=== PATIENT | female | born 1970 | race Caucasian/White ===

== ENCOUNTER → 2016-05-26 | Outpatient (CLI) | payer MEDICARE, OTHER | LOC: VM.MRI 14:06 | PROVIDERS: ATTEND Neurological Surgery | DX: M43.12 Spondylolisthesis, cervical region (principal); M50.323 Other cervical disc degeneration at C6-C7 level; Z98.1 Arthrodesis status | CPT/HCPCS: 72141 ==

== ENCOUNTER → 2016-05-26 | Outpatient (CLI) | payer MEDICARE, OTHER | LOC: VM.MRI 13:51 | PROVIDERS: ATTEND Pain Medicine Interventional Pain Medicine | DX: M47.817 Spondylosis without myelopathy or radiculopathy, lumbosacral region (principal); M51.37 Other intervertebral disc degeneration, lumbosacral region; M46.96 Unspecified inflammatory spondylopathy, lumbar region; M46.97 Unspecified inflammatory spondylopathy, lumbosacral region | CPT/HCPCS: 72148 ==

== ENCOUNTER 2016-10-04 13:03 | Emergency (ER) | payer MEDICARE, OTHER ==
[2016-10-04] MEDS ORDERED: Sodium Chloride 0.9% 10 ML Syringe FLUSH PRN (13:24)
[2016-10-04] MEDS ORDERED: Sodium Chloride 0.9% 1,000 ML IV ONE (13:24)
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
[2016-10-04 14:00] LABS: CHLORIDE,CL 107 mmol/L (98-107); SODIUM,NA 141 mmol/L (136-145)
[2016-10-04] MEDS ORDERED: diphenhydrAMINE 50 MG/ML SDV IVPUSH ONE (14:16)
[2016-10-04] MEDS ORDERED: Iopamidol 612 MG/ML 100 ML Bottle IVPUSH ONE (14:41)
[2016-10-04] MEDS ORDERED: Sodium Chloride 0.9% 100 ML IV ONE (14:41)
[2016-10-04 16:02] VITALS: BP 122/72
== END 2016-10-04 16:21 | disposition home or self-care (01) ==
LOC: VM.ED 13:03
DX: M79.1 Myalgia (principal); E78.00 Pure hypercholesterolemia, unspecified; J45.909 Unspecified asthma, uncomplicated; K21.9 Gastro-esophageal reflux disease without esophagitis; M19.90 Unspecified osteoarthritis, unspecified site; F41.9 Anxiety disorder, unspecified; F17.210 Nicotine dependence, cigarettes, uncomplicated; F32.9 Major depressive disorder, single episode, unspecified; Z98.890 Other specified postprocedural states; Z98.49 Cataract extraction status, unspecified eye; Z88.1 Allergy status to other antibiotic agents; Z88.8 Allergy status to other drugs, medicaments and biological substances; Z88.0 Allergy status to penicillin; Z79.899 Other long term (current) drug therapy; Z90.49 Acquired absence of other specified parts of digestive tract
CPT/HCPCS: 71275; 80053; 85025; 85379; 86140; 93971; 96361; 96374; 99282; 99284; J1200; J7030; J7050; Q9967

== ENCOUNTER 2016-10-05 16:58 | Emergency (ER) | payer MEDICARE, OTHER ==
[2016-10-05 17:11] VITALS: BP 144/96
[2016-10-05] MEDS ORDERED: Enoxaparin 60 MG/0.6 ML Syringe SUBCUT ONE (17:19)
[2016-10-05] MEDS ORDERED: Warfarin 5 MG Tab PO ONE (17:20)
--- NOTE | 2016-10-06 07:48 | ER ---
Date of Service: 10/05/2016 HISTORY OF PRESENT ILLNESS: Gia presents to emergency room with complaints of DVT. The patient underwent an ultrasound to the left lower extremity this afternoon. She was seen in the ER last night and was complaining of calf pain and had a positive D-dimer. The ultrasound did show a deep venous thrombosis in the distal portion of the upper leg as well as an in the calf area as well. The patient has a family history of deep veinous thrombosis and states that her mother secondary to a DVT that traveled to her lungs. Patient is currently on Climara patch and Estring following a partial hysterectomy and she is a smoker as well. PAST MEDICAL HISTORY: 1. Seizure disorder. 2. Urinary retention. 3. Schizophrenia. 4. Recurrent urinary tract infection. 5. Depression. 6. Anxiety. 7. COPD. 8. Migraine headaches. 9. Iron deficiency anemia. 10.Dyslipidemia. 11.Chronic pain syndrome. MEDICATIONS: 1. Requip 1 mg p.o. at bedtime. 2. Oxycodone 15 mg p.o. t.i.d. p.r.n. 3. Lamotrigine 25 mg p.o. daily. 4. Duragesic patch 25 mcg p.o. q.3 days. 5. Topamax 100 mg p.o. b.i.d. 6. TRETIN-X cream. 7. Spironolactone 200 mg p.o. b.i.d. 8. Zoloft 50 mg daily. 9. Imitrex 100 mg p.o. as directed p.r.n. for migraine. 10.Seroquel 300 mg p.o. daily. 11.Ondansetron 4 mg p.o. q. 8 hours p.r.n. 12.Omeprazole 40 mg p.o. b.i.d. a.c. 13.Omeprazole 40 mg p.o. b.i.d. 14.Mobic 15 mg p.o. daily. 15.Magnesium oxide 70 mg p.o. daily. 16.Amitiza 24 mcg p.o. b.i.d. with meals. 17.Krill fish oil 1 p.o. daily. 18.Feosol 45 mg p.o. daily. 19.Estring 1 vaginal every 90 days. 20.Climara 0.025 mg topically q.7 days. 21.Doxepin 10 mg p.o. at bedtime. 22.Colace 1 tablet p.o. daily. 23.Flexeril 10 mg p.o. at bedtime. 24.Symbicort 160-4.5, 2 inhalations inhaled b.i.d. 25.Albuterol sulfate 2 inhalations q.4 hours p.r.n. 26.Alprazolam 1 mg p.o. t.i.d. p.r.n. ALLERGIES: 1. Amoxicillin. 2. Latuda. 3. Methylprednisolone. 4. Penicillin. 5. Dilantin. 6. Tetracycline. REVIEW OF SYSTEMS: General: Denies any fever or chills. HEENT: Does complain of mild cough. Respiratory: Denies any shortness of breath. Cardiac/Chest: Denies any chest pain, hematemesis, or hemoptysis. Denies any lightheadedness or palpitations. No jaw, arm, neck, or back pain. GI: Nausea, vomiting, or diarrhea. No melena, hematochezia, or hematemesis. : Denies any dysuria. Musculoskeletal: No myalgias arthralgias. NEUROLOGIC: No fainting, blackouts, or lightheadedness. PHYSICAL EXAMINATION: General: This is a 46-year-old female patient, who is in no acute distress. Vital Signs: Blood pressure is 144/96, pulse rate is 110, temperature is 37.7, respiratory rate is 18, O2 saturations 100%. Skin: Warm, pink, and dry. HEENT: Head is normocephalic, atraumatic. Eyes, PERRLA. Extraocular movements are intact. Mouth, oral mucosa is moist. Lungs: Clear to auscultation. Heart: Regular rate and rhythm. Abdomen: Soft, nontender. There is no hepatosplenomegaly or masses noted. Extremities: Without edema. She does have some calf tenderness. Her Homans sign is positive on the left lower extremity. There was no duskiness to the extremity. LABORATORY DATA: WBCs 8.6, hemoglobin is 14.4, platelets are 287, PT is 9.4, INR is 0.8. Send out labs consisting of Factor V Leiden mutation, Factor VIII lupus anticoagulant protein S and protein C activity and prothrombin [id number] mutation were obtained and are pending. ASSESSMENT: Deep veinous thrombosis to left lower extremity. PLAN: The patient was started on weight based Lovenox. She was given injection of 60 mg of Lovenox subcu here in the emergency room. She was also given 5 mg of Coumadin p.o. was well. Prescriptions for Lovenox and Coumadin were called into [facility]. She went to fill the prescriptions after leaving the emergency room. She will be on Lovenox 60 mg subcu b.i.d. as a bridge until her INR is therapeutic. We will have the coagulation clinic contact her tomorrow regarding followup. We would like her to follow up in the clinic in 7-10 days for recheck. She is to return in the emergency room if she develops any chest pain, shortness of breath, lightheadedness, headache, or other worrisome signs or symptoms. All questions were answered. MWK: 10/05/2016 20:37:02 MODL: 10/06/2016 00:29:08 /[id number]
== END 2016-10-05 17:45 | disposition home or self-care (01) ==
LOC: VM.ED 16:58
DX: I82.402 Acute embolism and thrombosis of unspecified deep veins of left lower extremity (principal); F32.9 Major depressive disorder, single episode, unspecified; F41.9 Anxiety disorder, unspecified; J44.9 Chronic obstructive pulmonary disease, unspecified; G43.909 Migraine, unspecified, not intractable, without status migrainosus; D50.9 Iron deficiency anemia, unspecified; Z03.89 Encounter for observation for other suspected diseases and conditions ruled out; E78.5 Hyperlipidemia, unspecified; Z79.899 Other long term (current) drug therapy; Z90.710 Acquired absence of both cervix and uterus; Z88.1 Allergy status to other antibiotic agents; Z88.0 Allergy status to penicillin; Z88.8 Allergy status to other drugs, medicaments and biological substances; Z87.891 Personal history of nicotine dependence
CPT/HCPCS: 36415; 81240; 81241; 85025; 85240; 85303; 85306; 85610; 85613; 85730; 93971; 96372; 99283; A9270; J1650